=== PATIENT | female | born 1990 | race Caucasian/White ===

== ENCOUNTER 2017-07-25 14:09 | Outpatient (CLI) | payer MEDICAID ==
[2017-07-25] MEDS ORDERED: LACTATED RINGERS 500 ML IV ONE (14:40)
[2017-07-25 15:37] VITALS: BP 118/70
--- NOTE | 2017-07-25 22:14 | Ultrasound Report ---
FINAL REPORT PROCEDURE: Ultrasound biophysical profile without nonstress test. TECHNIQUE: Sonographic evaluation for breathing, movement, tone, and amniotic fluid volume was performed. CPT 40945 HISTORY: Evaluate well-being. COMPARISON: No prior studies are available for comparison. FINDINGS: Amniotic fluid volume: 2. breathin. movement: 2. tone: 2. Score: 8 of 8. IMPRESSION: Normal biophysical profile.
--- NOTE | 2017-07-25 23:04 | Ultrasound Report ---
FINAL REPORT PROCEDURE: Limited obstetrical ultrasound. TECHNIQUE: Real-time limited sonographic examination was performed for evaluation of size, position, heartbeat, fluid volume for each fetus with image documentation (1 or more fetuses). CPT 39783 HISTORY: Evaluate well-being. COMPARISON: No prior studies are available for comparison. FINDINGS: There is a single viable fetus in cephalic presentation. Cardiac activity is documented at 148 beats per minute. The amniotic fluid volume appears normal. The amniotic fluid index measures 16.7 centimeters. The placenta is anterior in location with no evidence of placenta previa. measurements were not obtained. IMPRESSION: Viable intrauterine fetus in cephalic presentation.
== END 2017-07-25 16:54 | disposition home or self-care (01) ==
LOC: TRG 14:09
PROVIDERS: ATTEND Obstetrics & Gynecology
DX: O47.03 False labor before 37 completed weeks of gestation, third trimester (principal); Z3A.36 36 weeks gestation of pregnancy
CPT/HCPCS: 59025; 76815; 76819